=== PATIENT | male | born 1970 | race Caucasian/White ===

== ENCOUNTER 2016-11-26 10:39 | Inpatient (IN) | payer OTHER ==
[~2016-11-26] VITALS: Ht 188 cm; Wt 104.4 kg
--- NOTE | ~2016-11-26 | EKG ---
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
[~2016-11-26 10:39] MED LIST: ASPIRIN325 PO; CATAPRES0.2 MG PO
[2016-11-26 10:40] VITALS: BP 140/103
[2016-11-26 10:53] LABS: ABSOLUTE NEUTROPHILS 5.2 thou/uL (1.4-8.2); BASOPHILS 1.2 % (0.0-2.0); EOSINOPHILS 5.5 % (0.0-3.0); HEMATOCRIT 45.3 % (42.0-52.0); HEMOGLOBIN 15.1 gm/dL (14.0-18.0); LYMPHOCYTES 18.7 % (24.0-44.0); MCH 28.3 pg (26.0-34.0); MCHC 33.4 g/dL (28.0-37.0); MCV 84.6 fL (80.0-100.0); MONOCYTES 7.3 % (1.0-8.0); PLATELET COUNT 233 thou/uL (150-400); POLYS 67.3 % (36.0-66.0); RBC 5.35 mil/uL (4.50-6.00); RDW 14.4 % (10.5-14.5); WBC 7.7 thou/uL (4.0-11.0)
[2016-11-26 10:56] LABS: MANUAL DIFF NO
[2016-11-26 11:01] LABS: ANION GAP 2 mmol/L (7-16); BUN 17 mg/dL (7-18); CALCIUM 8.8 mg/dL (8.5-10.1); CHLORIDE 106 mmol/L (98-107); CO2 31 mmol/L (21-32); CREATININE 1.1 mg/dL (0.7-1.3); GLUCOSE 94 mg/dL (74-106); POTASSIUM 4.2 mmol/L (3.5-5.1); SODIUM 139 mmol/L (136-145)
[2016-11-26 11:06] LABS: APTT 26.6 Seconds (24.5-32.8); PROTIME 10.8 Seconds (9.3-11.4)
[2016-11-26 11:09] LABS: TROPONIN-I < 0.04 ng/mL (<0.04-0.07)
[2016-11-26 12:31] VITALS: BP 138/100
[2016-11-26 12:46] VITALS: BP 127/99
[2016-11-26 13:36] LABS: CHOLESTEROL 148 mg/dL (<200); HDL CHOLESTEROL 40 mg/dL (>40); LDL CHOLESTEROL 86 mg/dL (<100); TC:HDL 3.7 Ratio (Not establshd); TRIGLYCERIDE 110 mg/dL (<150); VLDL 22 mg/dL (<40)
[2016-11-26 15:45] VITALS: BP 139/102; BP 141/100; BP 149/99
[2016-11-26 17:40] LABS: CK-MB MASS 1.1 ng/mL (<0.5-3.6); TROPONIN-I < 0.04 ng/mL (<0.04-0.07)
[2016-11-26 19:57] VITALS: BP 135/91
[2016-11-26 23:15] LABS: CK-MB MASS 1.1 ng/mL (<0.5-3.6); TROPONIN-I < 0.04 ng/mL (<0.04-0.07)
[2016-11-27] VITALS (8 sets, daily range): BP systolic 117–137; BP diastolic 61–102
[2016-11-28 04:14] VITALS: BP 142/79
[2016-11-28 04:40] LABS: CALCIUM 8.5 mg/dL (8.5-10.1); CREATININE 1.3 mg/dL (0.7-1.3); POTASSIUM 4.1 mmol/L (3.5-5.1)
[2016-11-28 05:25] LABS: HEMOGLOBIN 14.5 gm/dL (14.0-18.0); MCH 28.6 pg (26.0-34.0); MCHC 33.6 g/dL (28.0-37.0); MCV 85.1 fL (80.0-100.0); RBC 5.06 mil/uL (4.50-6.00); RDW 14.5 % (10.5-14.5)
[2016-11-28 07:52] VITALS: BP 137/94
[2016-11-28 11:33] VITALS: BP 121/80
[2016-11-28 16:23] VITALS: BP 142/84
[2016-11-28 20:04] VITALS: BP 148/95
[2016-11-29 03:58] VITALS: BP 150/95
[2016-11-29 07:35] VITALS: BP 129/49
[2016-11-29 11:05] VITALS: BP 138/90
[2016-11-29 17:00] VITALS: BP 161/97
[2016-11-29 20:45] VITALS: BP 158/97
[2016-11-30 03:21] VITALS: BP 158/109
[2016-11-30 08:30] VITALS: BP 163/110
[2016-11-30 11:25] VITALS: BP 140/90
[2016-11-30 17:00] VITALS: BP 154/98
[2016-11-30 20:00] VITALS: BP 157/105
[2016-12-01 00:20] VITALS: BP 138/92
[2016-12-01 03:00] VITALS: BP 139/94
[2016-12-01 03:19] LABS: HEMATOCRIT 44.2 % (42.0-52.0); HEMOGLOBIN 14.6 gm/dL (14.0-18.0); MCH 28.3 pg (26.0-34.0); MCHC 33.1 g/dL (28.0-37.0); MCV 85.4 fL (80.0-100.0); PLATELET COUNT 233 thou/uL (150-400); RBC 5.18 mil/uL (4.50-6.00); RDW 14.4 % (10.5-14.5); WBC 15.2 thou/uL (4.0-11.0)
[2016-12-01 03:25] LABS: CALCIUM 8.6 mg/dL (8.5-10.1); POTASSIUM 3.9 mmol/L (3.5-5.1)
[2016-12-01 03:55] LABS: MANUAL DIFF YES
[2016-12-01 05:07] LABS: TOTAL CELL COUNT 100
[2016-12-01 07:31] VITALS: BP 104/59
[2016-12-01] MEDS ORDERED: DILAUDID 2 MG TA2 MG PO (09:48)
[2016-12-01] MEDS ORDERED: LISINOPRIL20 MG PO (09:48)
[2016-12-01] MEDS ORDERED: TYLENOL325 MG PO (09:48)
[2016-12-01] MEDS ORDERED: ASPIR 8181 MG PO (09:48)
[2016-12-01 10:43] VITALS: BP 104/59
[2016-12-01 11:18] VITALS: BP 129/83
== END 2016-12-01 18:25 | disposition home or self-care (01) | DRG 103 ==
LOC: ER 10:39 → 2N 11:30 → EROBS 11:30 → 2N 12:28
PROVIDERS: Emergency Medicine; Hospitalist; Internal Medicine Endocrinology, Diabetes & Metabolism; Nurse Practitioner
DX: G43.919 Migraine, unspecified, intractable, without status migrainosus (principal); R07.89 Other chest pain; R10.13 Epigastric pain; R11.2 Nausea with vomiting, unspecified; I10 Essential (primary) hypertension; I25.2 Old myocardial infarction; Z79.899 Other long term (current) drug therapy; Z76.5 Malingerer [conscious simulation]; Z82.49 Family history of ischemic heart disease and other diseases of the circulatory system; Z83.3 Family history of diabetes mellitus; Z80.9 Family history of malignant neoplasm, unspecified; Z86.73 Personal history of transient ischemic attack (TIA), and cerebral infarction without residual deficits; Z87.81 Personal history of (healed) traumatic fracture; Z89.412 Acquired absence of left great toe
CPT/HCPCS: 10081

== ENCOUNTER 2017-03-03 08:39 | Inpatient (IN) | payer OTHER ==
[~2017-03-03] VITALS: Ht 188 cm; Wt 95.3 kg
--- NOTE | ~2017-03-03 | 2DMMODE ---
[facility] [address] [place] [address] 2 D/M-MODE ECHOCARDIOGRAM Name: GALE GOMEZ Room #: 417-I ADM IN M.R.#: [id number] Admission: 03/03/17 Attend Phys: Safia Gomez Discharge: Date of : 68 Date of Service: 03/03/17 1444 Report #: [id number] THIS REPORT FOR: //name// APPROVED REPORT Study performed: 03/03/2017 13:44:22 EXAM: Comprehensive 2D, Doppler, and color-flow Echocardiogram Patient Location: ER Room #: 7 Status: routine Other Information Study Quality: Good Indications Syncope Hypertension/HDD 2D Dimensions RVDd: 41.09 mm LVEF(%): 59.62 (>50%) IVSd: 14.46 (7-11mm) LVOT Diam: 25.05 (18-24mm) LVDd: 42.92 mm PWd: 14.17 (7-11mm) Ascending Ao: 37.05 (22-36mm) LVDs: 29.43 (25-40mm) Aortic Root: 40.99 mm IVC: 17.00 mm Isaac's LVEF: 59.62 % Volumes Left Atrial Volume (Systole) Single Plane 4CH: 52.84 mL Single Plane 2CH: 85.09 mL LA ESV Index: 33.00 mL/m2 Aortic Valve AoV Peak Arthur.: 1.47 m/s AO Peak Gr.: 8.59 mmHg LVOT Max P.32 mmHg LVOT Max V: 1.04 m/s SAEID Vmax: 3.49 cm2 Mitral Valve E/A Ratio: 1.2 MV Decel. Time: 211.22 ms MV E Max Arthur.: 0.75 m/s MV A Arthur.: 0.65 m/s MV PHT: 61.[address] [facility] [place] [address] 2 D/M-MODE ECHOCARDIOGRAM Name: PATRICIAGALE Room #: 417-I ADM IN .R.#: [id number] Admission: 03/03/17 Attend Phys: Safia Gomez Discharge: Date of : 68 Date of Service: 03/03/17 1444 Report #: [id number] IVRT: 129.18 ms Pulmonary Valve PV Peak Arthur.: 1.06 m/s PV Peak Gr.: 4.47 mmHg Pulmonary Vein P Vein S: 0.39 m/s P Vein A: 0.22 m/s P Vein D: 0.29 m/s P Vein A Dur.: 124.6 msec P Vein S/D Ratio: 1.34 Tricuspid Valve TR Peak Arthur.: 2.54 m/s RAP Estimate: 5.00 mmHg TR Peak Gr.: 25.81 mmHg PA Pressure: 30.00 mmHg Left Ventricle The left ventricle is normal size. There is normal LV segmental wall motion. Mild to moderate concentric left ventricular hypertrophy. The left ventricular systolic function is normal. The left ventricular ejection fraction is within the normal range. LVEF is 60-65%. Grade II - pseudonormal filling dynamics. Right Ventricle The right ventricle is normal size. The right ventricular systolic function is normal. Atria Left atrium is at the upper limits of normal. Right atrium is borderline dilated. Aortic Valve The aortic valve is midly sclerotic Trace aortic regurgitation. There is no aortic valvular stenosis. Mitral Valve The mitral valve is normal in structure. There is no mitral valve regurgitation noted. No evidence of mitral valve stenosis. Tricuspid Valve The tricuspid valve is normal in structure. There is no tricuspid valve stenosis. Trace to mild tricuspid regurgitation. There is tricuspid regurgitation. The right atrial pressure is estimated at 5 mmHg. There is no pulmonary hypertension. The estimated PAP was [address] [facility] [address] [place] [address] 2 D/M-MODE ECHOCARDIOGRAM Name: GALE GOMEZ Room #: 417-I ADM IN ..#: [id number] Admission: 03/03/17 Attend Phys: Safia Gomez Discharge: Date of : 68 Date of Service: 03/03/17 1444 Report #: [id number] The pulmonary valve is normal in structure. Great Vessels The aortic root is normal in size. IVC is normal in size and collapses >50% with inspiration. Pericardium There is no pericardial effusion. <Conclusion> The left ventricular systolic function is normal. Mild to moderate concentric left ventricular hypertrophy. There is normal LV segmental wall motion. LVEF is 60-65%. Grade II - pseudonormal filling dynamics. The aortic valve is midly sclerotic Trace aortic regurgitation, no stenosis. The mitral valve is normal in structure. No mitral valve regurgitation There is no pulmonary hypertension. The estimated pulmonary artery pressure was 30 mmHg. There is no pericardial effusion. <ELECTRONICALLY SIGNED> By: Rahul Torres MD, FACC 03/03/17 1444 1444 1444 Rahul Torres MD, FACC /INF
--- NOTE | ~2017-03-03 | EKG ---
[place] [address] [facility] [employer] [place] [address] ELECTROCARDIOGRAM REPORT Name: GALE GOMEZ Room #: 417-I ADM Mattie M.R.#: [id number] Admission: 03/03/17 Attend Phys: Rylan Orellana MD Discharge: Date of : 68 Report #: [id number] THIS REPORT FOR: //name// [facility] ED Test Date: 2017-03-03 Test Time: 08:41:32 Pat Name: GALE GOMEZ Department: Room: [facility] Gender: M Medical Coding Specialist: Nena CALLES : 1970 Requested By: Murray Pan Order Number: [id number] MD: Rahul Torres Measurements Intervals [place] Rate: 60 P: 38 CT: 186 QRS: 15 QRSD: 94 T: 25 QT: 403 QTc: 403 Interpretive Statements Sinus rhythm Left ventricular hypertrophy Compared to ECG 11/26/2016 10:40:34 no significant change was found Electronically Signed On 03-03-2017 18:11:55 CDT by Rahul Torres [email or web address] <ELECTRONICALLY SIGNED> By: Rahul Torres MD, [facility] 03/03/17 1811 0 0 Rahul Torres MD, [facility] /EPI
[2017-03-03 08:39] VITALS: BP 166/111
[~2017-03-03 08:39] MED LIST changes: +ASPIR 8181 MG PO; +DILAUDID 2 MG TA2 MG PO; +LISINOPRIL20 MG PO; +TYLENOL325 MG PO
[2017-03-03 09:07] LABS: ABSOLUTE NEUTROPHILS 5.2 thou/uL (1.4-8.2); BASOPHILS 1.2 % (0.0-2.0); EOSINOPHILS 3.5 % (0.0-3.0); HEMATOCRIT 46.1 % (42.0-52.0); HEMOGLOBIN 15.4 gm/dL (14.0-18.0); MCH 28.8 pg (26.0-34.0); MCHC 33.3 g/dL (28.0-37.0); MCV 86.5 fL (80.0-100.0); MONOCYTES 8.3 % (1.0-8.0); PLATELET COUNT 256 thou/uL (150-400); RBC 5.33 mil/uL (4.50-6.00); RDW 14.2 % (10.5-14.5); WBC 7.8 thou/uL (4.0-11.0)
[2017-03-03 09:17] LABS: MANUAL DIFF NO
[2017-03-03 09:23] LABS: ANION GAP 4 mmol/L (7-16); BUN 20 mg/dL (7-18); CALCIUM 8.9 mg/dL (8.5-10.1); CHLORIDE 104 mmol/L (98-107); CO2 30 mmol/L (21-32); CREATININE 0.9 mg/dL (0.7-1.3); GLUCOSE 87 mg/dL (74-106); POTASSIUM 3.9 mmol/L (3.5-5.1); SODIUM 138 mmol/L (136-145)
[2017-03-03 09:24] LABS: PROTIME 10.3 Seconds (9.3-11.4)
[2017-03-03 09:34] LABS: ALBUMIN 3.6 g/dL (3.4-5.0); ALKALINE PHOSPHATASE 81 U/L (46-116); MAGNESIUM 1.9 mg/dL (1.8-2.4); NT-PRO BRAIN NAT PEPTIDE 589 pg/mL (<300); SGOT 22 U/L (15-37); SGPT 35 U/L (30-65); TOTAL BILIRUBIN 0.4 mg/dL (<0.1-1.0); TOTAL PROTEIN 6.6 g/dL (6.4-8.2); TROPONIN-I < 0.04 ng/mL (<0.04-0.07)
[2017-03-03] MEDS ORDERED: LISINOPRIL20 MG PO (10:09)
[2017-03-03] MEDS ORDERED: HYDROCODONE-AP1 EAC6 PO (10:10)
[2017-03-03 11:07] LABS: AMP/METHAMP Negative (Negative); BARBITURATES Negative (Negative); BENZODIAZEPINES Negative (Negative); COCAINE Negative (Negative); METHADONE Negative (Negative); OPIATES Negative (Negative); PCP Negative (Negative); THC Negative (Negative)
[2017-03-03 11:08] VITALS: BP 162/113
[2017-03-03 13:20] VITALS: BP 130/81
[2017-03-03 16:40] VITALS: BP 150/91
[2017-03-03 20:00] VITALS: BP 151/64
[2017-03-04 04:02] VITALS: BP 147/96
[2017-03-04 06:41] LABS: CALCIUM 8.1 mg/dL (8.5-10.1); CREATININE 1.1 mg/dL (0.7-1.3); MAGNESIUM 1.8 mg/dL (1.8-2.4); POTASSIUM 3.9 mmol/L (3.5-5.1)
[2017-03-04 16:34] VITALS: BP 139/78
[2017-03-05 05:21] VITALS: BP 129/73
[2017-03-05 08:00] VITALS: BP 142/77
[2017-03-05 16:00] VITALS: BP 142/77; BP 171/101
[2017-03-05 20:00] VITALS: BP 166/101
[2017-03-05 22:25] VITALS: BP 157/97
[2017-03-06 05:10] VITALS: BP 165/86
[2017-03-06 07:38] VITALS: BP 164/102
[2017-03-06] MEDS ORDERED: HYDROCODONE-AP1 EAC6 PO (10:19)
[2017-03-06] MEDS ORDERED: BUTALB-ACETAMI1 EACH PO (10:19)
[2017-03-06] MEDS ORDERED: ANTIVERT25 MG PO (10:20)
[2017-03-06] MEDS ORDERED: TOPAMAX50 MG PO (10:20)
[2017-03-06 10:40] VITALS: BP 164/102
[2017-03-06 16:12] VITALS: BP 164/102
== END 2017-03-06 16:36 | disposition home or self-care (01) | DRG 103 ==
LOC: ER 08:39 → EROBS 10:19 → 4S 10:19 → 4E 11:39 → 4S 03-04 12:09
PROVIDERS: Emergency Medicine; Nurse Practitioner
DX: G43.919 Migraine, unspecified, intractable, without status migrainosus (principal); I10 Essential (primary) hypertension; R42 Dizziness and giddiness; R07.9 Chest pain, unspecified; S09.90XA Unspecified injury of head, initial encounter; W18.39XA Other fall on same level, initial encounter; Z79.899 Other long term (current) drug therapy; Z86.73 Personal history of transient ischemic attack (TIA), and cerebral infarction without residual deficits; Z83.3 Family history of diabetes mellitus; Z82.49 Family history of ischemic heart disease and other diseases of the circulatory system; Z80.9 Family history of malignant neoplasm, unspecified; Y93.89 Activity, other specified; Y92.89 Other specified places as the place of occurrence of the external cause; Y99.8 Other external cause status
CPT/HCPCS: 10102

== ENCOUNTER 2017-04-26 14:43 | Emergency (ER) | payer OTHER ==
[~2017-04-26] VITALS: Ht 172.7 cm; Wt 90.7 kg
--- NOTE | ~2017-04-26 | EKG ---
[facility] [address] ELECTROCARDIOGRAM REPORT Name: GALE GOMEZ Room #: DEP SHE Sheikh#: [id number] Admission: 04/26/17 Attend Phys: Discharge: 04/26/17 Date of : 68 Report #: [id number] THIS REPORT FOR: //name// [facility] [place] ED Test Date: 2017-04-26 Test Time: 15:00:26 Pat Name: GALE GOMEZ Department: Room: Gender: Gate Manager: KYLE : 1970 Requested By: Patel Lockett Order Number: [id number] MD: Rahul Torres Measurements Intervals [place] Rate: 91 P: 33 GA: 160 QRS: 3 QRSD: 96 T: 13 QT: 363 QTc: 447 Interpretive Statements Sinus rhythm Probable left ventricular hypertrophy Compared to ECG 03/03/2017 08:41:32 No significant changes Electronically Signed On 04-27-2017 13:48:18 CDT by Rahul Torres [email or web address] <ELECTRONICALLY SIGNED> By: Rahul Torres MD, [facility] 04/27/17 1348 1500 1500 Rahul Torres MD, FACC /EPI
[~2017-04-26 14:43] MED LIST changes: +ANTIVERT25 MG PO; +BUTALB-ACETAMI1 EACH PO; +HYDROCODONE-AP1 EAC6 PO; +TOPAMAX50 MG PO
[2017-04-26 15:01] LABS: ABSOLUTE NEUTROPHILS 5.9 thou/uL (1.4-8.2); BASOPHILS 1.3 % (0.0-2.0); EOSINOPHILS 3.5 % (0.0-3.0); HEMATOCRIT 43.5 % (42.0-52.0); HEMOGLOBIN 14.8 gm/dL (14.0-18.0); LYMPHOCYTES 17.9 % (24.0-44.0); MANUAL DIFF NO; MCH 28.9 pg (26.0-34.0); MCV 85.1 fL (80.0-100.0); MONOCYTES 7.5 % (1.0-8.0); PLATELET COUNT 244 thou/uL (150-400); POLYS 69.8 % (36.0-66.0); RBC 5.12 mil/uL (4.50-6.00); RDW 14.2 % (10.5-14.5); WBC 8.4 thou/uL (4.0-11.0)
[2017-04-26 15:11] LABS: ANION GAP 5 mmol/L (7-16); BUN 17 mg/dL (7-18); CALCIUM 8.9 mg/dL (8.5-10.1); CHLORIDE 106 mmol/L (98-107); CO2 28 mmol/L (21-32); CREATININE 1.3 mg/dL (0.7-1.3); GLUCOSE 118 mg/dL (74-106); POTASSIUM 3.6 mmol/L (3.5-5.1); SODIUM 139 mmol/L (136-145)
[2017-04-26 15:20] LABS: TROPONIN-I < 0.04 ng/mL (<0.04-0.07)
== END 2017-04-26 15:30 | disposition left against medical advice (07) ==
LOC: ER 14:43
PROVIDERS: Nurse Practitioner
DX: S99.911A Unspecified injury of right ankle, initial encounter (principal); R07.89 Other chest pain; R06.02 Shortness of breath; I10 Essential (primary) hypertension; G43.909 Migraine, unspecified, not intractable, without status migrainosus; E11.9 Type 2 diabetes mellitus without complications; Z86.73 Personal history of transient ischemic attack (TIA), and cerebral infarction without residual deficits; X58.XXXA Exposure to other specified factors, initial encounter; Y93.89 Activity, other specified; Y92.89 Other specified places as the place of occurrence of the external cause; Y99.8 Other external cause status

== ENCOUNTER 2017-08-10 12:31 | Emergency (ER) | payer OTHER ==
[~2017-08-10] VITALS: Ht 188 cm; Wt 97.5 kg
--- NOTE | ~2017-08-10 | EKG ---
[place] [address] [place] [address] ELECTROCARDIOGRAM REPORT Name: GALE GOMEZ Room #: DEP SHE Sheikh#: [id number] Admission: 08/10/17 Attend Phys: Discharge: 08/10/17 Date of : 68 Report #: [id number] THIS REPORT FOR: //name// [facility] ED Test Date: 2017-08-10 Test Time: 16:16:32 Pat Name: GALE GOMEZ Department: Room: Gender: Manager Music: IRIS : 1970 Requested By: Murray Pan Order Number: [id number] MD: Rahul Torres Measurements Intervals [place] Rate: 73 P: 38 [place]: 178 QRS: 20 QRSD: 100 T: 12 QT: 404 QTc: 446 Interpretive Statements Sinus rhythm Probable left ventricular hypertrophy Compared to ECG 04/26/2017 15:00:26 No significant changes Electronically Signed On 08-11-2017 8:42:15 RETAIL SERVICE TECHNICIAN by Rahul Torres [email or web address] <ELECTRONICALLY SIGNED> By: Rahul Torres MD, [facility] 08/11/17 0842 1616 1616 Rahul Torres MD, FACC /EPI
[2017-08-10] MEDS ORDERED: BLOOD THINNER (13:07)
[2017-08-10 15:10] LABS: ABSOLUTE NEUTROPHILS 4.7 thou/uL (1.4-8.2); BASOPHILS 1.2 % (0.0-2.0); EOSINOPHILS 4.8 % (0.0-3.0); HEMATOCRIT 43.9 % (42.0-52.0); HEMOGLOBIN 14.6 gm/dL (14.0-18.0); LYMPHOCYTES 21.5 % (24.0-44.0); MCH 28.4 pg (26.0-34.0); MCHC 33.3 g/dL (28.0-37.0); MCV 85.3 fL (80.0-100.0); MONOCYTES 7.1 % (1.0-8.0); PLATELET COUNT 231 thou/uL (150-400); POLYS 65.4 % (36.0-66.0); RBC 5.15 mil/uL (4.50-6.00); WBC 7.2 thou/uL (4.0-11.0)
[2017-08-10 15:16] LABS: ANION GAP 4 mmol/L (7-16); BUN 14 mg/dL (7-18); CALCIUM 8.7 mg/dL (8.5-10.1); CHLORIDE 106 mmol/L (98-107); CO2 33 mmol/L (21-32); CREATININE 1.1 mg/dL (0.7-1.3); GLUCOSE 103 mg/dL (74-106); POTASSIUM 3.6 mmol/L (3.5-5.1); SODIUM 143 mmol/L (136-145)
[2017-08-10 15:25] LABS: ALBUMIN 3.4 g/dL (3.4-5.0); DIRECT BILIRUBIN 0.1 mg/dL (<0.1-0.3); LIPASE 214 U/L (73-393); SGOT 15 U/L (15-37); SGPT 26 U/L (30-65); TOTAL BILIRUBIN 0.5 mg/dL (<0.1-1.0); TOTAL PROTEIN 6.2 g/dL (6.4-8.2); TROPONIN-I < 0.04 ng/mL (<0.06)
[2017-08-10] MEDS ORDERED: ANTIVERT25 MG PO (16:44)
[2017-08-10] MEDS ORDERED: TRAMADOL 50 MG50 MG PO (16:44)
[2017-08-10] MEDS ORDERED: BUTALB-APAP-CA1 EACH PO (16:44)
[2017-08-10 17:26] LABS: URINE BILIRUBIN NEGATIVE (Negative); URINE BLOOD NEGATIVE (Negative); URINE CLARITY CLEAR; URINE COLOR YELLOW; URINE GLUCOSE-RANDOM* NEGATIVE (Negative); URINE KETONES NEGATIVE (Negative); URINE LEUKOCYTES-REFLEX NEGATIVE (Negative); URINE NITRITE-REFLEX NEGATIVE (Negative); URINE PROTEIN (DIPSTICK) NEGATIVE (Negative)
[2017-08-10 18:26] VITALS: BP 161/92
== END 2017-08-10 18:30 | disposition home or self-care (01) ==
LOC: ER 12:31
PROVIDERS: Emergency Medicine; Nurse Practitioner Family
DX: G43.901 Migraine, unspecified, not intractable, with status migrainosus (principal); R10.32 Left lower quadrant pain; R07.9 Chest pain, unspecified; R11.2 Nausea with vomiting, unspecified; I10 Essential (primary) hypertension; Z86.73 Personal history of transient ischemic attack (TIA), and cerebral infarction without residual deficits

== ENCOUNTER 2018-10-14 11:53 | Inpatient (IN) | payer OTHER ==
[~2018-10-14] VITALS: Ht 188 cm; Wt 104.3 kg
[~2018-10-14 11:53] MED LIST changes: +BLOOD THINNER; +BUTALB-APAP-CA1 EACH PO; +TRAMADOL 50 MG50 MG PO
[2018-10-14 11:54] VITALS: BP 163/100
[2018-10-14 12:27] LABS: ABSOLUTE NEUTROPHILS 4.7 thou/uL (1.4-8.2); BASOPHILS 1.1 % (0.0-2.0); EOSINOPHILS 3.4 % (0.0-3.0); HEMATOCRIT 46.4 % (42.0-52.0); HEMOGLOBIN 15.6 gm/dL (14.0-18.0); LYMPHOCYTES 15.8 % (24.0-44.0); MCH 28.5 pg (26.0-34.0); MCHC 33.6 g/dL (28.0-37.0); MCV 84.7 fL (80.0-100.0); MONOCYTES 7.4 % (1.0-8.0); PLATELET COUNT 250 thou/uL (150-400); POLYS 72.3 % (36.0-66.0); RBC 5.47 mil/uL (4.50-6.00); RDW 14.4 % (10.5-14.5); WBC 6.4 thou/uL (4.0-11.0)
[2018-10-14 12:29] LABS: ANION GAP 9 mmol/L (7-16); BUN 18 mg/dL (7-18); CALCIUM 9.3 mg/dL (8.5-10.1); CHLORIDE 104 mmol/L (98-107); CO2 26 mmol/L (21-32); GLUCOSE 101 mg/dL (74-106); SODIUM 139 mmol/L (136-145)
[2018-10-14 12:38] LABS: TROPONIN-I <0.06 ng/mL (<0.06)
[2018-10-14 15:11] VITALS: BP 177/108
[2018-10-14 15:21] VITALS: BP 169/109
--- NOTE | 2018-10-14 16:46 | EKG ---
[address] [place] [address] ELECTROCARDIOGRAM REPORT Name: GALE GOMEZ Room #: 457-P ADM IN M.R.#: [id number] ������������������ Admission: 10/14/18 ������������������ Attend Phys: Fernando Taylor MD Discharge: ������������������ Date of : 68 Report #: [id number] ����������������������������������������������������������������� [id number] THIS REPORT FOR: //name// ED Test Date: 2018-10-14 Test Time: 12:00:36 Pat Name: GALE GOMEZ Department: Room: [facility] Gender: M Searchlight Operator: KENNA : 1970 Requested By: Hood Cabrera Order Number: [id number] MD: Mk Cook Measurements Intervals [place] Rate: 83 P: 23 [place]: 176 QRS: 5 QRSD: 90 T: 9 QT: 359 QTc: 422 Interpretive Statements Sinus rhythm Left atrial enlargement Left ventricular hypertrophy Compared to ECG 08/10/2017 16:16:32 Atrial abnormality now present Electronically Signed On 10-14-2018 16:46:31 PRIME BROKER by Mk Cook [email or web address] ��������������������������������������������� <ELECTRONICALLY SIGNED> ���������������������������������������� By: Mk Cook MD ��������������������������������������������� 10/14/18 1646 1200 99 Mk Cook MD /KASHMIR
--- NOTE | 2018-10-14 19:13 | NUR ---
Received pt from the ER, alert and oriented x 4. VS monitored. Significant other at the bedside, requested for information on the process on how significant other can be a dpoa. CM advised to consult spiritual care team. Kept pt confortable at bedside , no further issued identified.l
[2018-10-14 20:00] VITALS: BP 161/107
[2018-10-14 22:55] VITALS: BP 163/109
[2018-10-15 04:37] VITALS: BP 128/83
--- NOTE | 2018-10-15 05:14 | NUR ---
Pt. rested quietly during the shift when checked on during frequent rounds. Bp elevated and c/o headache. Leanne RIDER called and notifed with new orders (see cpoe).
--- NOTE | 2018-10-15 05:15 | NUR ---
Pt. was given hydralazine for elevated bp (see emar) with decrease in bp this am. He still c/o a headache and Leanne Farfan PATIENT SERVICES REP called again with one time toradol order received (see cpoe).
[2018-10-15 08:00] VITALS: BP 156/102
--- NOTE | 2018-10-15 08:13 | EKG ---
[address] [address] ELECTROCARDIOGRAM REPORT Name: GALE GOMEZ Room #: 457-P ADM IN M.R.#: [id number] ������������������ Admission: 10/14/18 ������������������ Attend Phys: Fernando Taylor MD Discharge: ������������������ Date of : 68 Report #: [id number] ����������������������������������������������������������������� [id number] THIS REPORT FOR: //name// [facility] Test Date: 2018-10-15 Test Time: 07:39:41 Pat Name: GALE GOMEZ Department: Room: 457 P Gender: M Die Operator: GR : 1970 Requested By: Fernando Taylor Order Number: [id number] MD: Rahul Torres Measurements Intervals [place] Rate: 62 P: 44 NM: 179 QRS: 21 QRSD: 90 T: 22 QT: 414 QTc: 421 Interpretive Statements Sinus rhythm Left ventricular hypertrophy Compared to ECG 10/14/2018 12:00:36 No significant change was found Electronically Signed On 10-15-2018 8:12:44 DRIER OPERATOR by Rahul Torres [email or web address] ��������������������������������������������� <ELECTRONICALLY SIGNED> ���������������������������������������� By: Rahul Torres MD, [facility] ��������������������������������������������� 10/15/18 0812 0739 07 Rahul Torres MD, FACC /EPI
[2018-10-15 08:30] LABS: CHOLESTEROL 135 mg/dL (<200); HDL CHOLESTEROL 33 mg/dL (>40); LDL CHOLESTEROL 82 mg/dL (<100); SERUM ASSESSMENT Clear; TC:HDL 4.1 Ratio (Not establshd); TRIGLYCERIDE 104 mg/dL (<150); VLDL 21 mg/dL (<40)
[2018-10-15 15:00] VITALS: BP 133/91
--- NOTE | 2018-10-15 15:47 | NUR ---
PT ADMITTED RELATED TO CHEST PAIN, HEADACHE, DYSARTHRIA. CM REVIEWED CHART AND SPOKE WITH CARE TEAM. CM MET WITH PT AT BEDSIDE THIS DAY. PT IS A&O X4. CM ROLE INTRODUCED. PT INDICATED HE LIVES IN AN APARTMENT WITH IS FIANCE WITH 2 STEPS TO ENTER AND NO STEPS INSIDE. 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 PT INDICATED HE DOESN'T HAVE A PCP AT THIS TIME AND HE IS PATIENT PAY. WE HAD VOUCHERED PT'S MEDS IN THE PAST. IT IS ANTICPATED THAT PT WILL HAVE NO NEED UPON DC. CM ABLE TO FOLLOW INDICATED WITH DC PLANNING.
--- NOTE | 2018-10-15 18:14 | NUR ---
Pt was asleep for most of the day, complained of headache, one tie pain medication given in the am. Pt still complained later on in the afternoon of a headache, informed Dr. Presley avery ordered. Dr. Sherwood clearly stated he will no reorder the 1 time dose of hydromorphone and will talk to the pt. with regards to this. Pt is up at arias and able to ambulate from the bed to the toilet.
[2018-10-15 19:15] VITALS: BP 153/85
[2018-10-16 03:52] VITALS: BP 136/64
--- NOTE | 2018-10-16 04:50 | NUR ---
Pt. has been resting in bed all shift. He c/o chronic headache and complains that nothing helps his headache. Spoke to Ludmila RIDER about this and one time ibuprofen order received. Ibuprofen given (see emar) with no relief of pain. Tylenol also given (see emar). He c/o nausea, but refused nausea medication. Pt. iv also came out and he refused to have another one placed. Informed Ludmila RIDER and ok to leave iv out. Room environment quiet and dark.
[2018-10-16 07:00] VITALS: BP 149/91
--- NOTE | 2018-10-16 08:08 | NUR ---
PT IS A&0X4, AMB STEADY, ENCOURAGED TO ACCLIMATE AT SIDE OF BED W/PAIN IN HEAD BEFORE WALKING OR TO CALL US FOR SBA, HE AGREES, RATES MIGRAINE PAIN 05/03, HAD HAD THEM COUPLE OF YEARS, HAS TYLENOL ON BOARD ONLY. PLACED PHYSICIAN CONTACT ILDEFONSO HU LAST NIGHT AND THIS A.M. SHOWERING, LET BOOKSTORE MANAGER KNOW HE'S OFF AND HE STATES HE'LL CALL WHEN DONE. MEDS ADMINISTERED, ASSESSMENT DONE. ENCOURAGED GALE TO CALL FOR ANY NEEDS
--- NOTE | 2018-10-16 12:50 | NUR ---
RECEIVED P.T. ORDERS TO EVALUATE PATIENT. Pt ABLE TO DEMONSTRATE HE COULD AMBULATE INDEPENDENTLY IN ROOM WITHOUT A DEVICE. NURSE NOTIFIED THAT Pt SAFE TO AMBULATE ADLIB IN ROOM. P.T. EVAL DEFERRED.
[2018-10-16 15:05] VITALS: BP 158/95
--- NOTE | 2018-10-16 15:26 | NUR ---
PHYSICIAN CALL: PT RATING HEADACHE, OCCIPITAL AREA (STATES THIS IS WHERE HIS COLÓN USUALLY OCCURS) 06/02 AND ALSO ASKING IF HIS FIANCE HAS CALLED, HAS BEEN TRYING TO GET AHOLD OF HER, USED SEVERAL HOSPITAL PHONES TO HELP HIM REACH HER AND TEXTED HER ONCE WITH OUR PHONE NUMBER AND PT'S ROOM PHONE NUMBER. ENCOURAGED HIM TO LET GO OF THE WORRY FOR THE MOMENT AND BREATHE IN DEEP AND LONG AND SLOW. IV MED ORDERED, ENCOURAGED PT TO CONTINUE TO CALL NEEDED
--- NOTE | 2018-10-16 16:13 | NUR ---
REC CALL FROM US THAT PT STATES HE THREW UP, ANTIEMETIC HAD BEEN ADM AT 1536, LET PHYSICIAN KNOW. PT HAS HAD TWO MEALS FROM [place] AND A BOX LUNCH, STATES EMPHATICALLY HE NEEDS TO TALK TO [place] AND IS CONCERNED, I'VE MADE 3-4 ATTEMPTS TO GET AHOLD OF HER, GAVE PHYSICIAN FRITZ ALERT ON CURRENT CONDITION RE: PT'S REPORT OF EMESIS IN SPITE OF ANTIEMETIC. VS TAKEN, ALL WNL SAVE FOR B/P WHICH WAS TREATED W/HYDRALAZINE
[2018-10-16 19:19] VITALS: BP 155/95
--- NOTE | 2018-10-17 00:23 | NUR ---
PT C/O MIGRAINE,MANAGED WITH PO AND IV MEDS.PT DENIED CHEST PAIN SO FAR.SANDWICH BOX GIVEN PER PT'S REQUEST.URINAL AT BEDSIDE.PT SLEEPING ON HIS BED AT THIS TIME.CALL LIGHT WITHIN REACH.
[2018-10-17 03:55] VITALS: BP 132/92
[2018-10-17 09:18] VITALS: BP 146/85
[2018-10-17 14:17] VITALS: BP 151/83
--- NOTE | 2018-10-17 16:38 | NUR ---
PT ALERT AND ORIENTED TIMES FOUR. VSS, 98%RA, SR ON TELE. PT C/O CHEST PAIN AND HEADACHE THIS SHIFT, PRN PAIN MEDICATONS GIEVN WITH LITTLE RELEIF PER PT. SPOKE TO ABOUT PT COMPLAINTS NNO GIVEN. PT TOLERATES MEDS AND MEALS. PT UP AB QUANG WITH STEADY GAIT. PT SLOWLY PROGRESSING TOWRADS POC GOALS.
[2018-10-17 19:10] VITALS: BP 147/94
--- NOTE | 2018-10-18 01:10 | NUR ---
Assumed care at 1845. Pt resting in bed. His been having some pain with deep breaths gave him some morphine X1. Pain has dropped to 2/10. No identified needs at the moment. Call light within reach. Will continue to monitor.
[2018-10-18 04:25] VITALS: BP 137/91
[2018-10-18 10:00] VITALS: BP 183/102
[2018-10-18 11:28] VITALS: BP 183/102
--- NOTE | 2018-10-18 13:50 | HC ---
[facility] [place] [address] CONSULTATION Name: GALE GOMEZ Room #: 457-P ADM IN M.R.#: [id number] Admission: 10/14/18 ������������������ Attend Phys: Fernando Taylor MD Discharge: ������������������ Date of : 68 Report #: [id number] THIS REPORT FOR: //name// CC: [facility] physician/PCP Fernando Taylor DATE OF SERVICE: 10/16/2018 HISTORY OF PRESENT ILLNESS: This is a 47-year-old male patient who was evaluated by me for the possibility of migraine headache. The patient says that he gets about 1 migraine headache every month. It lasts for 2-3 days. He takes some hydrocodone for that. He indicates that he took some migraine cocktail and that helped. Presently he takes ketorolac, but that is not helping. He is also complaining of chest pain that is being addressed by Cardiology. I reviewed his records in the computer. He has been seen multiple times in the Emergency Room with the headache and chest pain. He was seen by Dr. Rowley for neurological consultation in 2017 and he was having same kind of headache that time. He underwent an MRI of the brain with and without contrast and carotid Doppler and that was unremarkable. REVIEW OF SYSTEMS: Indicate that he says that he is under a lot of stress. He has been tried on Depakote and multiple other medications in the past. He has never taken Topamax. He had multiple problems with the chest. A 14-point review of systems was otherwise noncontributory. PAST MEDICAL HISTORY: Positive for migraine headache. FAMILY HISTORY: Negative for early age stroke. SOCIAL HISTORY: He says he does not smoke or drink alcohol. PHYSICAL EXAMINATION: CENTRAL NERVOUS SYSTEM: The patient indicates that he is alert, responsive, and able to follow simple and complex command. He is there in dark room, he did not want me to turn the light on, so I did not, but the cranial nerve examination looks okay. NEUROMUSCULAR: He takes a long time to tell the position sense, but he is able to tell otherwise unremarkable. I did not look at the fundus. There is no meningeal sign. There is no carotid bruit. CARDIAC: Unremarkable. RESPIRATORY: Unremarkable. VITAL SIGNS: His blood pressure is running about 159/95. LABORATORY AND DIAGNOSTIC DATA: His lab indicated normal white count in spite of such an extensive pain in the patient's young age. His last TSH was normal. [facility] [address] [place] [address] CONSULTATION Name: GALE GOMEZ Room #: 457-P ADM IN M.R.#: [id number] Admission: 10/14/18 ������������������ Attend Phys: Fernando Taylor MD Discharge: ������������������ Date of : 68 Report #: [id number] He did have a CT scan here and that was unremarkable. IMPRESSION: This patient appeared to have a pain syndrome, but no cause is found for those symptoms. Only other recommendation I will have is do an MRA of the [place] of [place]. We can do on Thursday to complete the workup. Otherwise, the main management is going to be the management of his pain in conjunction with the pain management. Does not look like anybody from pain management comes here and I will discuss the patient with you, but nothing specific to add but as an outpatient we can try some Topamax on this patient. ��������������������������������������������� <ELECTRONICALLY SIGNED> ���������������������������������������� By: Bran Montemayor MD ��������������������������������������������� 10/18/18 1350 1814 0600 Bran Montemayor MD /nt
--- NOTE | 2018-10-18 14:46 | NUR ---
DIS PT FOR DC TODAY. DC PACKET PROVIDED. CW NOTIFIED TO DC NEEDS. PT WENT DOWNSTAIRS TO MEET HER GF AND NEVER COMEBACK TO TALK TO CERAMIC PAINTER.
--- NOTE | 2018-10-18 17:26 | NUR ---
CM MET WITH PT AT BEDSIDE THIS AM. PT INDICATED THAT HE WAS NOW HOMELESS AND THAT HE AND HIS FIANCE AND THEIR SMALL DOG NEEDED SOMEWHERE TO GO UPON HIS DISHCARGE. CM INDICATED THAT CM COULD PROVIDE RESOURCES FOR SHELTERS. HE ASKED THAT CM FIND OUT IF THERE WERE A ASSISTED WHERE THEY ALL MIGHT GO TOGETHER. HE STATED THAT HIS FIANCE WOULD BE BY AROUND 12:30-1:00 AND CM OFFERED TO FOLLOW UP AT THAT TIME. CM WENT TO FOLLOW UP WITH PT AND STAFF INDICATED THAT HE HAD LEFT THE FLOOR. CM WENT TO ASSESS ANOTHER PT AND PATIENT RETURNED TO THE FLOOR CM INFORMED PT THAT CM WOULD MEET WITH PT IN HIS ROOM IN A MOMENT. CM WENT TO PT'S ROOM AND PT WASN'T THERE. CM PROVIDED ASSISTED RESOURCES TO NURSE TO PROVIDE TO PT IF/WHEN HE RETURNED TO THE UNIT. NO OTHER CM INTERVENTION INDICATED. CASE CLOSED.
== END 2018-10-18 14:47 | disposition home or self-care (01) | DRG 313 ==
LOC: ER 11:53 → EROBS 13:38 → 4W 13:38
PROVIDERS: Emergency Medicine; Nurse Practitioner Gerontology; ADMIT Internal Medicine
DX: R07.89 Other chest pain (principal); I25.10 Atherosclerotic heart disease of native coronary artery without angina pectoris; G43.909 Migraine, unspecified, not intractable, without status migrainosus; I10 Essential (primary) hypertension; Z89.422 Acquired absence of other left toe(s); Z82.49 Family history of ischemic heart disease and other diseases of the circulatory system; Z83.2 Family history of diseases of the blood and blood-forming organs and certain disorders involving the immune mechanism; Z83.3 Family history of diabetes mellitus; Z79.82 Long term (current) use of aspirin; Z79.899 Other long term (current) drug therapy; Z91.19 Patient's noncompliance with other medical treatment and regimen; Z86.73 Personal history of transient ischemic attack (TIA), and cerebral infarction without residual deficits
CPT/HCPCS: 10045

== ENCOUNTER 2019-02-13 12:07 | Inpatient (IN) | payer OTHER ==
[~2019-02-13] VITALS: Ht 188 cm; Wt 108.9 kg
[2019-02-13 12:13] VITALS: BP 189/122
[2019-02-13 12:54] LABS: ABSOLUTE NEUTROPHILS 5.1 thou/uL (1.4-8.2); BASOPHILS 0.8 % (0.0-2.0); EOSINOPHILS 3.6 % (0.0-3.0); HEMATOCRIT 43.8 % (42.0-52.0); HEMOGLOBIN 14.8 gm/dL (14.0-18.0); LYMPHOCYTES 14.1 % (24.0-44.0); MCH 28.7 pg (26.0-34.0); MCHC 33.8 g/dL (28.0-37.0); MCV 84.8 fL (80.0-100.0); MONOCYTES 10.1 % (1.0-8.0); POLYS 71.4 % (36.0-66.0); RBC 5.16 mil/uL (4.50-6.00); RDW 14.3 % (10.5-14.5); WBC 7.1 thou/uL (4.0-11.0)
[2019-02-13 12:57] LABS: PLATELET COUNT 181 thou/uL (150-400)
[2019-02-13 13:03] LABS: APTT 26.9 Seconds (24.5-32.8)
[2019-02-13 13:06] LABS: PROTIME 10.6 Seconds (9.3-11.4)
[2019-02-13 13:08] LABS: ALBUMIN 3.8 g/dL (3.4-5.0); ANION GAP 9 mmol/L (7-16); BUN 13 mg/dL (7-18); CALCIUM 8.6 mg/dL (8.5-10.1); CHLORIDE 104 mmol/L (98-107); CO2 27 mmol/L (21-32); CREATININE 1.3 mg/dL (0.7-1.3); POTASSIUM 3.6 mmol/L (3.5-5.1); SGOT 27 U/L (15-37); SGPT 41 U/L (30-65); SODIUM 140 mmol/L (136-145); TOTAL BILIRUBIN 0.5 mg/dL (<0.1-1.0); TOTAL PROTEIN 7.1 g/dL (6.4-8.2); TROPONIN-I <0.06 ng/mL (<0.06)
[2019-02-13 13:09] LABS: GLUCOSE 88 mg/dL (74-106)
[2019-02-13 14:14] LABS: URINE BILIRUBIN NEGATIVE (Negative); URINE BLOOD 2+ (Negative); URINE CLARITY CLEAR; URINE COLOR YELLOW; URINE GLUCOSE-RANDOM* NEGATIVE (Negative); URINE KETONES NEGATIVE (Negative); URINE LEUKOCYTES NEGATIVE (Negative); URINE NITRITE NEGATIVE (Negative); URINE PROTEIN (DIPSTICK) NEGATIVE (Negative); URINE SPECIFIC GRAVITY <= 1.005 (1.005-1.035); URINE UROBILINOGEN 0.2 E.U./dl (0.2-1.0)
[2019-02-13 14:19] LABS: AMP/METHAMP POSITIVE (Negative); BARBITURATES Negative (Negative); BENZODIAZEPINES Negative (Negative); COCAINE Negative (Negative); METHADONE Negative (Negative); OPIATES Negative (Negative); PCP Negative (Negative)
[2019-02-13 14:34] LABS: CASTS None Seen /LPF (None Seen); CRYSTALS None Seen /LPF (None Seen); SQUAMOUS None Seen /LPF (0-3); URINE RBC 0-2 Rare /HPF (0-2); URINE WBC 0-5 Rare /HPF (0-5)
[2019-02-13 14:49] LABS: BACTERIA None Seen /HPF (None Seen)
[2019-02-13 17:29] VITALS: BP 148/94
[2019-02-13 18:15] VITALS: BP 155/100
[2019-02-13 18:39] VITALS: BP 171/124
[2019-02-14 00:30] VITALS: BP 152/98
[2019-02-14 04:07] LABS: HEMATOCRIT 43.7 % (42.0-52.0); MCHC 34.3 g/dL (28.0-37.0); MCV 84.5 fL (80.0-100.0); RBC 5.17 mil/uL (4.50-6.00); RDW 14.7 % (10.5-14.5); WBC 6.8 thou/uL (4.0-11.0)
[2019-02-14 04:21] LABS: CALCIUM 8.1 mg/dL (8.5-10.1); CREATININE 1.1 mg/dL (0.7-1.3); POTASSIUM 3.1 mmol/L (3.5-5.1)
[2019-02-14 04:53] VITALS: BP 159/88
[2019-02-14 07:08] VITALS: BP 137/87
--- NOTE | 2019-02-14 09:17 | EKG ---
[place] [address] [facility] [place] [address] ELECTROCARDIOGRAM REPORT Name: GALE GOMEZ Room #: 364-P ADM IN M.R.#: [id number] ������������������ Admission: 02/13/19 ������������������ Attend Phys: Dom Harris MD Discharge: ������������������ Date of : 68 Report #: [id number] ����������������������������������������������������������������� [id number] THIS REPORT FOR: //name// [facility] ED Test Date: 2019-02-13 Test Time: 12:17:28 Pat Name: GALE GOMEZ Department: Room: 364 Gender: M Molder Machine Tender: : 1970 Requested By: Hood Manuel Order Number: [id number] MD: Rahul Torres Measurements Intervals [place] Rate: 76 P: 41 [place]: 178 QRS: 16 QRSD: 92 T: 46 QT: 387 QTc: 436 Interpretive Statements Sinus rhythm No significant abnormality Compared to ECG 10/15/2018 07:39:41 No significant change Electronically Signed On 02-14-2019 9:17:31 CDT by Rahul Torres [email or web address] ��������������������������������������������� <ELECTRONICALLY SIGNED> ���������������������������������������� By: Rahul Torres MD, [facility] ��������������������������������������������� 02/14/19 0917 1217 1217 Rahul Torres MD, FACC /EPI
[2019-02-14 11:30] VITALS: BP 142/90
[2019-02-14 15:47] VITALS: BP 152/93
[2019-02-14 19:38] VITALS: BP 153/87
[2019-02-15 04:08] LABS: HEMATOCRIT 41.3 % (42.0-52.0); MCH 28.7 pg (26.0-34.0); MCV 84.6 fL (80.0-100.0); RBC 4.89 mil/uL (4.50-6.00); RDW 14.5 % (10.5-14.5); WBC 7.5 thou/uL (4.0-11.0)
[2019-02-15 04:15] VITALS: BP 135/82
[2019-02-15 04:23] LABS: CALCIUM 8.3 mg/dL (8.5-10.1); CREATININE 0.9 mg/dL (0.7-1.3); POTASSIUM 3.5 mmol/L (3.5-5.1)
[2019-02-15] MEDS ORDERED: NORVASC10 MG PO (09:36)
[2019-02-15] MEDS ORDERED: COREG6.25 MG PO (09:36)
[2019-02-15] MEDS ORDERED: LISINOPRIL10 MG PO (09:36)
[2019-02-15 10:20] VITALS: BP 136/81
== END 2019-02-15 10:33 | disposition home or self-care (01) | DRG 305 ==
LOC: ER 12:07 → EROBS 16:30 → 3W 18:03 → ENTRNSPT 02-15 10:23 → EDTRNSPTSTS 02-15 10:26 → 3W 02-15 10:33
PROVIDERS: Emergency Medicine; ADMIT Hospitalist
DX: I16.1 Hypertensive emergency (principal); I10 Essential (primary) hypertension; G43.909 Migraine, unspecified, not intractable, without status migrainosus; R29.810 Facial weakness; Z86.73 Personal history of transient ischemic attack (TIA), and cerebral infarction without residual deficits; Z87.81 Personal history of (healed) traumatic fracture; Z82.49 Family history of ischemic heart disease and other diseases of the circulatory system; Z83.3 Family history of diabetes mellitus; Z91.19 Patient's noncompliance with other medical treatment and regimen; Z71.51 Drug abuse counseling and surveillance of drug abuser; Z79.899 Other long term (current) drug therapy; Z88.0 Allergy status to penicillin
CPT/HCPCS: 10879

== ENCOUNTER 2020-10-16 12:44 | Emergency (ER) | payer OTHER ==
[~2020-10-16] VITALS: Ht 188 cm; Wt 111.4 kg
[~2020-10-16 12:44] MED LIST changes: +COREG6.25 MG PO; +LISINOPRIL10 MG PO; +NORVASC10 MG PO
[2020-10-16 13:19] LABS: ABSOLUTE NEUTROPHILS 5.5 thou/uL (1.4-8.2); BASOPHILS 1.2 % (0.0-2.0); EOSINOPHILS 2.4 % (0.0-3.0); HEMATOCRIT 43.5 % (42.0-52.0); HEMOGLOBIN 14.6 gm/dL (14.0-18.0); LYMPHOCYTES 20.9 % (24.0-44.0); MCH 28.9 pg (26.0-34.0); MCHC 33.6 g/dL (28.0-37.0); MONOCYTES 8.7 % (1.0-8.0); PLATELET COUNT 232 thou/uL (150-400); POLYS 66.8 % (36.0-66.0); RBC 5.05 mil/uL (4.50-6.00); WBC 8.2 thou/uL (4.0-11.0)
[2020-10-16 13:25] LABS: ANION GAP 12 mmol/L (7-16); BUN 18 mg/dL (7-18); CALCIUM 8.5 mg/dL (8.5-10.1); CHLORIDE 102 mmol/L (98-107); CO2 25 mmol/L (21-32); CREATININE 1.3 mg/dL (0.7-1.3); GLUCOSE 98 mg/dL (74-106); POTASSIUM 3.7 mmol/L (3.5-5.1); SODIUM 139 mmol/L (136-145)
[2020-10-16 13:30] LABS: PROTIME 11.3 Seconds (9.3-11.4)
[2020-10-16 13:34] LABS: TROPONIN-I <0.06 ng/mL (<0.06)
[2020-10-16] MEDS ORDERED: PLAVIX 75 MG TA75 MG PO (13:42)
--- NOTE | 2020-10-16 15:27 | EKG ---
[facility] [address] [employer] [place] [address] ELECTROCARDIOGRAM REPORT Name: GALE GOMEZ Room #: REG SHE Sheikh#: [id number] Admission: 10/16/20 Attend Phys: Discharge: Date of : 68 Report #: [id number] [facility] ED Test Date: 2020-10-16 Test Time: 12:53:25 Pat Name: GALE GOMEZ Department: Room: Gender: Thermal Cutting Tracer Machine Operator: : 1970 Requested By: Corinna Yuan Order Number: [id number] MD: Nahum Mon Measurements Intervals [place] Rate: 89 P: 33 [place]: 177 QRS: 6 QRSD: 95 T: 18 QT: 421 QTc: 513 Interpretive Statements Sinus rhythm Ventricular bigeminy Probable left atrial enlargement Left ventricular hypertrophy Anterior Q waves, possibly due to LVH Compared to ECG 02/13/2019 12:17:28 Ventricular premature complex(es) now present Left ventricular hypertrophy now present Q waves now present Electronically Signed On 10-16-2020 15:27:35 RAIL CAR MAINTENANCE MECHANIC by Nahum Mon [email or web address] <ELECTRONICALLY SIGNED> By: Nahum Mon MD, [facility] 10/16/20 1527 1253 1253 Nahum Mon MD, FAC /EPI
[2020-10-16 17:29] VITALS: BP 143/99
--- NOTE | 2020-10-17 07:01 | EKG ---
[facility] [place] [address] ELECTROCARDIOGRAM REPORT Name: GALE GOMEZ Room #: DEP SHE Sheikh#: [id number] Admission: 10/16/20 Attend Phys: Discharge: 10/16/20 Date of : 68 Report #: [id number] [facility] ED Test Date: 2020-10-16 Test Time: 16:34:22 Pat Name: GALE GOMEZ Department: Room: Gender: M Product Safety Test Engineer: iva : 1970 Requested By: Gale Kay Order Number: [id number] MD: Nahum Mon Measurements Intervals [place] Rate: 76 P: 12 OK: 203 QRS: 5 QRSD: 93 T: 16 QT: 394 QTc: 444 Interpretive Statements Sinus rhythm Borderline prolonged OK interval Left atrial enlargement Probable left ventricular hypertrophy Anterior Q waves, possibly due to LVH Baseline wander in lead(s) V3 Compared to ECG 10/16/2020 12:53:25 Ventricular premature complex(es) no longer present Electronically Signed On 10-17-2020 7:00:48 POSTAL DELIVERY OFFICER by Nahum Mon [email or web address] <ELECTRONICALLY SIGNED> By: Nahum Mon MD, [facility] 10/17/20 0700 1634 1634 Nahum Mon MD, [facility] /EPI
== END 2020-10-16 17:49 | disposition home or self-care (01) ==
LOC: ER 12:44
PROVIDERS: Emergency Medicine
DX: R07.9 Chest pain, unspecified (principal); R20.2 Paresthesia of skin; F15.10 Other stimulant abuse, uncomplicated; I10 Essential (primary) hypertension; G43.909 Migraine, unspecified, not intractable, without status migrainosus; Z86.73 Personal history of transient ischemic attack (TIA), and cerebral infarction without residual deficits; Z79.899 Other long term (current) drug therapy; Z79.01 Long term (current) use of anticoagulants; Z88.0 Allergy status to penicillin

== ENCOUNTER 2021-09-11 16:40 | Emergency (ER) | payer OTHER ==
[~2021-09-11] VITALS: Ht 188 cm; Wt 113.4 kg
[~2021-09-11 16:40] MED LIST changes: +PLAVIX 75 MG TA75 MG PO
[2021-09-11 17:23] LABS: ABSOLUTE NEUTROPHILS 5.5 thou/uL (1.4-8.2); EOSINOPHILS 2.5 % (0.0-3.0); MONOCYTES 7.1 % (1.0-8.0); WBC 7.6 thou/uL (4.0-11.0)
[2021-09-11 17:25] LABS: BASOPHILS 1.3 % (0.0-2.0); HEMATOCRIT 47.5 % (42.0-52.0); HEMOGLOBIN 15.8 gm/dL (14.0-18.0); LYMPHOCYTES 17.1 % (24.0-44.0); MCH 28.4 pg (26.0-34.0); MCHC 33.2 g/dL (28.0-37.0); MCV 85.7 fL (80.0-100.0); PLATELET COUNT 256 thou/uL (150-400); RBC 5.55 mil/uL (4.50-6.00)
[2021-09-11 17:48] LABS: CALCIUM 8.9 mg/dL (8.5-10.1); CREATININE 1.1 mg/dL (0.7-1.3); POTASSIUM 3.6 mmol/L (3.5-5.1)
[2021-09-11 17:55] LABS: ALBUMIN 3.8 g/dL (3.4-5.0); TOTAL BILIRUBIN 0.6 mg/dL (0.2-1.0)
[2021-09-11] MEDS ORDERED: PLAVIX 75 MG TA75 MG PO (21:27)
[2021-09-11] MEDS ORDERED: NORVASC10 MG PO (21:27)
[2021-09-11] MEDS ORDERED: LISINOPRIL10 MG PO (21:27)
[2021-09-11] MEDS ORDERED: COREG6.25 MG PO (21:27)
[2021-09-11 21:44] VITALS: BP 172/112
--- NOTE | 2021-09-12 08:39 | EKG ---
[facility] [place] [employer] [place] [address] ELECTROCARDIOGRAM REPORT Name: GALE GOMEZ Room #: DEP SHE Sheikh#: [id number] Admission: 09/11/21 Attend Phys: Discharge: 09/11/21 Date of : 68 Report #: [id number] 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 : 1970 Requested By: Francesca Barnes Order Number: [id number] MD: Nahum Mon Measurements Intervals [place] Rate: 81 P: 69 MD: 221 QRS: 60 QRSD: 91 T: 64 QT: 371 QTc: 431 Interpretive Statements Sinus rhythm Atrial premature complex Prolonged MD interval Left ventricular hypertrophy Compared to ECG 10/16/2020 16:34:22 Atrial premature complex(es) now present Atrial abnormality no longer present Q waves no longer present Electronically Signed On 09-12-2021 8:39:29 SENIOR JAVA DEVELOPER by Nahum Mon [email or web address] <ELECTRONICALLY SIGNED> By: Nahum Mon MD, [facility] 09/12/21 0839 30 30 Nahum Mon MD, FAC /EPI
== END 2021-09-11 21:47 | disposition home or self-care (01) ==
LOC: ER 16:40
PROVIDERS: Emergency Medicine
DX: I10 Essential (primary) hypertension (principal); R07.89 Other chest pain; G43.909 Migraine, unspecified, not intractable, without status migrainosus; Z79.899 Other long term (current) drug therapy; Z88.0 Allergy status to penicillin